=== PATIENT | female | born 1955 | race Caucasian/White ===

== ENCOUNTER 2018-05-03 10:28 | Day surgery (SDC) | payer OTHER ==
[~2018-05-03 10:28] MED LIST: LIDOCAINE 2% (SDV) 5 ML INJ; SUCCINYLCHOLINE CHLORIDE 100 MG/5 ML SYG IV
[2018-05-03] MEDS ORDERED: FENTAnyl 50 MCG/ML VIAL IV ×2 (12:30)
[2018-05-03] MEDS ORDERED: ALBUTEROL 0.083% (NEB) 2.5 MG/3 ML AMP HHN (12:30)
[2018-05-03] MEDS ORDERED: HYDROmorphONE 1 MG/5 ML IV SYRINGE IV ×3 (12:30)
[2018-05-03] MEDS ORDERED: DIPHENHYDRAMINE 50 MG INJ IV (12:30)
[2018-05-03] MEDS ORDERED: METOCLOPRAMIDE 10 MG INJ IV (12:30)
[2018-05-03] MEDS ORDERED: MEPERIDINE 25 MG INJ IV (12:30)
[2018-05-03] MEDS ORDERED: ONDANSETRON 4 MG INJ IV (12:30)
[2018-05-03] MEDS ORDERED: PROPOFOL 20 ML (13:11)
[2018-05-03] MEDS ORDERED: LACTATED RINGER'S 1,000 ML IV* (13:30)
== END 2018-05-03 15:40 | disposition home or self-care (01) ==
LOC: SDS 10:28
DX: N85.00 Endometrial hyperplasia, unspecified (principal); D25.0 Submucous leiomyoma of uterus
CPT/HCPCS: 58558; 88305